=== PATIENT | female | born 1970 | race Caucasian/White ===

== ENCOUNTER 2017-05-05 15:15 | Emergency (ER) | payer BC, OTHER ==
[~2017-05-05] VITALS: Ht 160 cm; Wt 67.8 kg
[2017-05-05 15:18] VITALS: Ht 160 cm; Wt 67.8 kg
[2017-05-05] MEDS ORDERED: ONDANSETRON 4 MG INJ IV STA ×2 (15:55→17:59)
[2017-05-05] MEDS ORDERED: morphine 4 MG/ML VIAL IV STA (15:55)
[2017-05-05] MEDS ORDERED: SOD CHLORIDE 0.9% 1,000 ML IV STA (15:55)
[2017-05-05 16:21] LABS: BASOPHIL # 0.1 10^3/ul (0.0-0.1); BASOPHILS % 0.4 % (0.0-2.0); EOSINOPHILS % 0.1 % (0.0-7.0); HEMOGLOBIN 13.9 g/dl (12.0-16.0); LYMPHOCYTES # 1.6 10^3/ul (0.8-2.9); LYMPHOCYTES % 9.6 % (15.0-51.0); MEAN CORPUSCULAR HEMOGLOBIN 26.5 pg (29.0-33.0); MEAN CORPUSCULAR HGB CONC 31.6 g/dl (32.0-37.0); MEAN PLATELET VOLUME 9.4 fl (7.4-10.4); MONOCYTE # 0.9 10^3/ul (0.3-0.9); MONOCYTES % 5.7 % (0.0-11.0); NEUTROPHIL # 13.6 10^3/ul (1.6-7.5); NEUTROPHILS % 83.8 % (39.0-77.0); PLATELET COUNT 307 10^3/UL (140-415); RED BLOOD COUNT 5.24 10^6/ul (4.20-5.40); RED CELL DISTRIBUTION WIDTH 13.5 % (11.5-14.5); WHITE BLOOD COUNT 16.3 10^3/ul (4.8-10.8)
[2017-05-05] MEDS ORDERED: HYDROmorphONE 1 MG/ML SYG IV STA (16:34)
[2017-05-05 16:42] LABS: ALBUMIN 4.2 g/dl (3.3-4.9); ALBUMIN/GLOBULIN RATIO 0.93; BILIRUBIN,INDIRECT 0.2 mg/dl (0-1.1); BILIRUBIN,TOTAL 0.2 mg/dl (0.2-1.3); CALCIUM 10.5 mg/dl (8.4-10.2); CREATININE 0.79 mg/dl (0.44-1.00); POTASSIUM 3.8 mmol/L (3.5-5.1); TOTAL PROTEIN 8.7 g/dl (6.1-8.1)
[2017-05-05 17:05] LABS: ADD UMIC YES; UR ASCORBIC ACID NEGATIVE (NEGATIVE); UR BACTERIA MANY /HPF (NONE SEEN); UR BILIRUBIN (Dip) NEGATIVE (NEGATIVE); UR BLOOD (Dip) 3+ mg/dL (NEGATIVE); UR CLARITY CLOUDY (CLEAR); UR COLOR YELLOW (YELLOW); UR GLUCOSE (Dip) NEGATIVE (NEGATIVE); UR KETONES (Dip) TRACE mg/dL (NEGATIVE); UR LEUKOCYTE ESTERASE (Dip) NEGATIVE Leu/ul (NEGATIVE); UR MUCUS FEW /HPF (NONE SEEN); UR NITRITE (Dip) NEGATIVE (NEGATIVE); UR RBC > 182 /HPF (0-5); UR SPECIFIC GRAVITY (Dip) 1.019 (1.003-1.030); UR SQUAMOUS EPITHELIAL CELL MODERATE /HPF (FEW); UR TOTAL PROTEIN (Dip) NEGATIVE (NEGATIVE); UR UROBILINOGEN (Dip) NEGATIVE (NEGATIVE)
--- NOTE | 2017-05-05 17:17 | RADRPT ---
PROCEDURE: US Pelvis. CLINICAL INDICATION: Pelvic pain, left-sided TECHNIQUE: Multiple sonographic images of the pelvis were obtained utilizing a transabdominal and endovaginal technique. The images were reviewed on a PACS workstation. COMPARISON: None available FINDINGS: Uterus: Normal in size, contour and echogenicity with no evidence for myometrial masses. Size is est imated at 10.1 x 5.2 x 5 cm. Cervix: No abnormalities of significance are seen. Endometrium: Normal in thickness for the patient's presumed premenopausal state; 14.5 mm. Anechoic material within the endometrial cavity consistent with a small amount of fluid Right ovary / adnexa: Normal in size estimated at 2.8 x 2.2 x 1.7 cm. No evidence for masses, norm al blood flow on Doppler interrogation. Left ovary/adnexa: Normal in size estimated at 2.1 x 1.6 x 1.3 cm. No evidence for solid masses, no rmal blood flow on Doppler interrogation. Cul-de-sac: No evidence of free fluid. RPTAT:HJJR IMPRESSION: 1. Small amount of fluid within the endometrial cavity with an endometrial thickness within normal l imits presuming a premenopausal state. 2. Sonographically normal ovaries and adnexa. 3. No evidence of free fluid. Physician Malu Date Time Electronically viewed and signed by Physician Malu on 05/05/2017 17:17 /
--- NOTE | 2017-05-05 17:40 | RADRPT ---
PROCEDURE: CT abdomen and pelvis without contrast. CLINICAL INDICATION: Abdominal pain TECHNIQUE: CT scan of the abdomen and pelvis without contrast was performed. Sagittal and coronal reformatted images were obtained from the axial source images. One or more of the following dose re duction techniques were used: Automated exposure control, adjustment of the mA and/or kV according t o patient size, use of iterative reconstruction technique. CTDI = 5.71 mGy; DLP = 282.27 mGy-cm COMPARISON: None. FINDINGS: Visualized lower thorax: The lung bases are clear. There is no evidence for pleural effusion. Liver, gallbladder, pancreas and spleen: The liver is normal and size, contour and attenuation. Th ere is no evidence for a liver mass or ductal dilatation. The gallbladder is unremarkable. No comm on bile duct abnormality is demonstrated. The pancreas is unremarkable. The spleen is normal in si ze. Adrenal glands and genitourinary system: The adrenal glands are normal bilaterally. The right kidne y is unremarkable. There is mild left nephromegaly and subtle stranding of the left perinephric fat with mild left hydronephrosis. The right ureter is unremarkable. There is mild left hydroureter tra ceable to the left distal ureter where a calculus estimated at 4 x 4 mm is present (series 3 image 1 30). The attenuation of the distal left ureteral calculus is estimated at 700 HU. The urinary bladde r is contracted but otherwise unremarkable. Slightly lobulated contour to the uterus cannot exclude small leiomyomata. There is no evidence of ovarian or adnexal mass. Trace amount of free fluid in t he posterior cul-de-sac is likely physiologic. Please note that there are pelvic phleboliths on the right. Gastrointestinal system: The stomach is normal in caliber with no abnormality of significance. The small bowel is normal in caliber with no ileus, obstruction or wall thickening. The appendix and s urrounding fat are within the limits of normal. A few scattered diverticula throughout the entire c olon are present. There is no evidence for colitis or diverticulitis. Peritoneum, retroperitoneum, lymph nodes and vessels: The abdominal aorta is normal in caliber. The re is no evidence for atherosclerotic calcification. The inferior vena cava is unremarkable. There is no evidence for adenopathy or mass. There is no ascites. There is no evidence of pneumoperitone um Osseous structures and musculoskeletal findings: There is no fracture, lytic or blastic lesion. No muscular abnormality or soft tissue pathology is present. RPTAT:HJJR IMPRESSION: 1. Mild left hydroureteronephrosis is traceable to a 4 x 4 mm distal left ureteral calculus just abo ve the ureterovesical junction. 2. Trace amount of left perinephric fat inflammatory stranding cannot exclude associated underlying infection without abscess. 3. No additional urinary tract calculi are present. Calcifications in the right pelvis are phleboli ths. 4. Slightly lobulated contour to the uterus unable to exclude leiomyomatous changes. 5. 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 6. Trace amount of free fluid in the posterior cul-de-sac is likely physiologic. Physician Malu Date Time Electronically viewed and signed by Physician Malu on 05/05/2017 17:40 JR/
--- NOTE | 2017-05-05 17:41 | ERD ---
ER Documentation Chief Complaint Date/Time DATE: 05/05/17 TIME: 17:38 Chief Complaint ap since yesterday HPI 37-year-old female patient with a past medical history of ovarian cyst, autoimmune disease, neuropathy presents to the ED complaining of left-sided abdominal pain that radiates to her back that started earlier this morning. Reports that she also has some pelvic discomfort. States that she tried taking Tylenol earlier this morning but it did not help. Describes the pain as a bursting sensation and spastic. States that she had one episode of nonbilious nonbloody vomiting. Denies any fever, chills, diarrhea, chest pain, shortness of breath, constipation, diarrhea. ROS All systems reviewed and are negative except as per history of present illness. Medications Home Meds Active Scripts Tamsulosin Hcl* (Flomax*) 0.4 Mg Cap.er.24h, 0.4 MG PO QPM, #20 CAP Prov:HANNAH MOORE PA-C 05/05/17 Naproxen* (Naprosyn*) 500 Mg Tablet, 500 MG PO BID Y for PAIN AND/OR INFLAMMATION, #30 TAB Prov:HANNAH MOORE PA-C 05/05/17 Ondansetron (Ondansetron Odt) 4 Mg Tab.rapdis, 4 MG PO Q6H Y for NAUSEA AND/OR VOMITING, #10 TAB Prov:HANNAH MOORE PA-C 05/05/17 Cephalexin* (Keflex*) 500 Mg Capsule, 500 MG PO QID for 10 Days, CAP Prov:HANNAH MOORE PA-C 05/05/17 Allergies Allergies: Coded Allergies: No Known Allergy (Unverified , 05/05/17) PMhx/Soc Medical and Surgical Hx: pt denies Surgical Hx History of Surgery: No Anesthesia Reaction: No Hx Neurological Disorder: No Hx Respiratory Disorders: No Hx Cardiac Disorders: No Hx Psychiatric Problems: No 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 In no acute distress. Head: Atraumatic, normocephalic Eyes: Normal Conjunctiva without injection. No purulent discharge. ENT: Normal external ear, nose. Moist oropharynx without tonsillar exudates. Non -erythematous pharynx. Uvula midline. No drooling. No trismus. Neck: No cervical midline tenderness. Full range of motion. No meningismus. No cervical lymphadenopathy. No JVD. Resp: Clear to auscultation bilaterally. No wheezing, rhonchi, rales, or crackles. No accessory muscle use. No retractions. Cardio: Regular rate and rhythm. No murmurs, rubs or gallops. Abd: Soft, diffuse generalized tenderness predominantly in the left lower quadrant. Non distended. Normal bowel sounds. No palpable masses. No rebound tenderness. No guarding. Negative McBurney's point. Negative psoas sign. Negative obturator sign. : See exam in MDM. Skin: No petechiae or rashes Back: No midline tenderness. No CVA tenderness. Ext: No cyanosis, or edema. Neur: Awake and alert. Normal gait. Normal coordination. Psych: Normal Mood and Affect Result Diagram: 05/05/17 1610 05/05/17 1610 Results 24 hrs Laboratory Tests Test 05/05/17 16:10 05/05/17 16:12 White Blood Count 16.310^3/ul Red Blood Count 5.2410^6/ul Hemoglobin 13.9g/dl Hematocrit 44.0% Mean Corpuscular Volume 84.0fl Mean Corpuscular Hemoglobin 26.5pg Mean Corpuscular Hemoglobin Concent 31.6g/dl Red Cell Distribution Width 13.5% Platelet Count 76374^3/UL Mean Platelet Volume 9.4fl Neutrophils % 83.8% Lymphocytes % 9.6% Monocytes % 5.7% Eosinophils % 0.1% Basophils % 0.4% Nucleated Red Blood Cells % 0.0/100WBC Neutrophils # 13.610^3/ul Lymphocytes # 1.610^3/ul Monocytes # 0.910^3/ul Eosinophils # 0.010^3/ul Basophils # 0.110^3/ul Nucleated Red Blood Cells # 0.010^3/ul Sodium Level 140mmol/L Potassium Level 3.8mmol/L Chloride Level 106mmol/L Carbon Dioxide Level 24mmol/L Anion Gap 14 Blood Urea Nitrogen 11mg/dl Creatinine 0.79mg/dl Glucose Level 112mg/dl Calcium Level 10.5mg/dl Total Bilirubin 0.2mg/dl Direct Bilirubin 0.00mg/dl Indirect Bilirubin 0.2mg/dl Aspartate Amino Transf (AST/SGOT) 19IU/L Alanine Aminotransferase (ALT/SGPT) 28IU/L Alkaline Phosphatase 112IU/L Total Protein 8.7g/dl Albumin 4.2g/dl Globulin 4.50g/dl Albumin/Globulin Ratio 0.93 Lipase 107U/L Urine Color YELLOW Urine Clarity CLOUDY Urine pH 6.0 Urine Specific [place] 1.019 Urine Ketones TRACEmg/dL Urine Nitrite NEGATIVEmg/dL Urine Bilirubin NEGATIVEmg/dL Urine Urobilinogen NEGATIVEmg/dL Urine Leukocyte Esterase NEGATIVELeu/ul Urine Microscopic RBC > 182/HPF Urine Microscopic WBC 10/HPF Urine Squamous Epithelial Cells MODERATE/HPF Urine Calcium Oxalate Crystals MANY/HPF Urine Bacteria MANY/HPF Urine Mucus FEW/HPF Urine Hemoglobin 3+mg/dL Urine Glucose NEGATIVEmg/dL Urine Total Protein NEGATIVEmg/dl Current Medications Medications (Trade) Dose Ordered Sig/Estefania Route PRN Reason Start Time Stop Time Status Last Admin Dose Admin Sodium Chloride (NS) 1,000 ml @ 1,000 mls/hr Q1H STAT IV 05/05/17 15:55 05/05/17 16:54 DC 05/05/17 16:20 Morphine Sulfate (morphine) 4 mg ONCE STAT IV 05/05/17 15:55 05/05/17 15:58 DC 05/05/17 16:20 Ondansetron HCl (Zofran Inj) 4 mg ONCE STAT IV 05/05/17 15:55 05/05/17 15:58 DC 05/05/17 16:20 Hydromorphone HCl 1 mg 1 mg ONCE STAT IV 05/05/17 16:34 05/05/17 16:35 DC 05/05/17 16:39 Ceftriaxone Sodium (Rocephin) 50 ml @ 100 mls/hr ONCE ONCE IVPB 05/05/17 18:00 05/05/17 18:29 DC 05/05/17 18:01 Ketorolac Tromethamine (Toradol) 30 mg ONCE STAT IV 05/05/17 17:59 10/7/17 18:00 DC 05/05/17 18:01 Ondansetron HCl (Zofran Inj) 4 mg ONCE STAT IV 05/05/17 17:59 05/05/17 18:00 DC 05/05/17 18:01 Procedures/MDM 37-year-old female patient with a past medical history of ovarian cyst, autoimmune disease, neuropathy presents to the ED complaining of left-sided abdominal pain that started yesterday. Patient is afebrile and nontoxic- appearing. Patient has normal vital signs. Patient was further worked up with CBC, CMP, lipase, UA, pelvic ultrasound, CT of the abdomen and pelvis without contrast. Patient's pain and symptoms have improved after treatment with 1 L normal saline, 4 mg IV morphine, 1 mg Dilaudid, 4 mg IV Zofran, 30 mg IV Toradol. CBC: Leukocytosis of 16.3. No e/o of systemic infection. No e/o anemia. CMP: No e/o severe acidosis, alkalosis, renal failure, diabetic ketoacidosis, liver disease Lipase within normal limits. Urine: No leukocyte esterase, no nitrites, no hematuria. Urine : negative PROCEDURE: CT abdomen and pelvis without contrast. CLINICAL INDICATION: Abdominal pain TECHNIQUE: CT scan of the abdomen and pelvis without contrast was performed. Sagittal and coronal reformatted images were obtained from the axial source images. One or more of the following dose reduction techniques were used: Automated exposure control, adjustment of the mA and/or kV according to patient size, use of iterative reconstruction technique. CTDI = 5.71 mGy; DLP = 282.27 mGy-cm COMPARISON: None. FINDINGS: Visualized lower thorax: The lung bases are clear. There is no evidence for pleural effusion. Liver, gallbladder, pancreas and spleen: The liver is normal and size, contour and attenuation. There is no evidence for a liver mass or ductal dilatation. The gallbladder is unremarkable. No common bile duct abnormality is demonstrated. The pancreas is unremarkable. The spleen is normal in size. Adrenal glands and genitourinary system: The adrenal glands are normal bilaterally. The right kidney is unremarkable. There is mild left nephromegaly and subtle stranding of the left perinephric fat with mild left hydronephrosis. The right ureter is unremarkable. There is mild left hydroureter traceable to the left distal ureter where a calculus estimated at 4 x 4 mm is present ( series 3 image 130). The attenuation of the distal left ureteral calculus is estimated at 700 HU. The urinary bladder is contracted but otherwise unremarkable. Slightly lobulated contour to the uterus cannot exclude small leiomyomata. There is no evidence of ovarian or adnexal mass. Trace amount of free fluid in the posterior cul-de-sac is likely physiologic. Please note that there are pelvic phleboliths on the right. Gastrointestinal system: The stomach is normal in caliber with no abnormality of significance. The small bowel is normal in caliber with no ileus, obstruction or wall thickening. The appendix and surrounding fat are within the limits of normal. A few scattered diverticula throughout the entire colon are present. There is no evidence for colitis or diverticulitis. Peritoneum, retroperitoneum, lymph nodes and vessels: The abdominal aorta is normal in caliber. There is no evidence for atherosclerotic calcification. The inferior vena cava is unremarkable. There is no evidence for adenopathy or mass. There is no ascites. There is no evidence of pneumoperitoneum Osseous structures and musculoskeletal findings: There is no fracture, lytic or blastic lesion. No muscular abnormality or soft tissue pathology is present. RPTAT:HJJR IMPRESSION: 1. Mild left hydroureteronephrosis is traceable to a 4 x 4 mm distal left ureteral calculus just above the ureterovesical junction. 2. Trace amount of left perinephric fat inflammatory stranding cannot exclude associated underlying infection without abscess. 3. No additional urinary tract calculi are present. Calcifications in the right pelvis are phleboliths. 4. Slightly lobulated contour to the uterus unable to exclude leiomyomatous changes. 5. 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 6. Trace amount of free fluid in the posterior cul-de-sac is likely physiologic. PROCEDURE: US Pelvis. CLINICAL INDICATION: Pelvic pain, left-sided TECHNIQUE: Multiple sonographic images of the pelvis were obtained utilizing a transabdominal and endovaginal technique. The images were reviewed on a PACS workstation. COMPARISON: None available FINDINGS: Uterus: Normal in size, contour and echogenicity with no evidence for myometrial masses. Size is estimated at 10.1 x 5.2 x 5 cm. Cervix: No abnormalities of significance are seen. Endometrium: Normal in thickness for the patient's presumed premenopausal state ; 14.5 mm. Anechoic material within the endometrial cavity consistent with a small amount of fluid Right ovary / adnexa: Normal in size estimated at 2.8 x 2.2 x 1.7 cm. No evidence for masses, normal blood flow on Doppler interrogation. Left ovary/adnexa: Normal in size estimated at 2.1 x 1.6 x 1.3 cm. No evidence for solid masses, normal blood flow on Doppler interrogation. Cul-de-sac: No evidence of free fluid. RPTAT:HJJR IMPRESSION: 1. Small amount of fluid within the endometrial cavity with an endometrial thickness within normal limits presuming a premenopausal state. 2. Sonographically normal ovaries and adnexa. 3. No evidence of free fluid. She has nephrolithiasis with a urinary tract infection. There is low suspicion for septic renal stone, ectopic , ovarian torsion, gastritis, GERD, peptic ulcer disease, cholecystitis, choledocholithiasis, cholangitis, pancreatitis, appendicitis, bowel obstruction, ileus, volvulus, nephrolithiasis , pyelonephritis, hepatitis, perforated viscus, diverticulitis, strangulated/ incarcerated hernia, DKA, acute abdomen, mesenteric ischemia or other emergent conditions. 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 Instructed patient to return to the ED sooner for any worsening symptoms. Patient's questions were answered. Patient understood and agreed with discharge plan. Patient discharged stable. Departure Diagnosis: Primary Impression: Abdominal pain Abdominal location: left lower quadrant Qualified Code: R10.32 - Left lower quadrant pain Condition: Stable Patient Instructions: Abdominal Pain HANNAH MOORE PA-C May 05, 2017 17:41
[2017-05-05] MEDS ORDERED: KETOROLAC 30 MG INJ IV STA (17:59)
[2017-05-05] MEDS ORDERED: CEFTRIAXONE 1 GM/50 ML (PMX) 50 ML IVPB ONE (18:00)
[2017-05-05] MEDS ORDERED: TAMS-14 PO (18:00)
[2017-05-05] MEDS ORDERED: ONDA4TAB14 PO (18:00)
[2017-05-05] MEDS ORDERED: CEPH-443 PO (18:00)
[2017-05-05] MEDS ORDERED: NAPR-260 PO (18:00)
== END 2017-05-05 18:46 | disposition home or self-care (01) ==
LOC: FTE 15:15
DX: R10.32 Left lower quadrant pain (principal)
CPT/HCPCS: 36415; 74176; 76830; 76856; 80053; 81001; 83690; 85025; 96374; 96375; 96376; 99285; J0696; J1170; J1885; J2270; J2405; J7030